=== PATIENT | female | born 1995 | race African-American/Black ===

== ENCOUNTER → 2023-10-24 | Outpatient (CLI) | payer OTHER | LOC: M LAB 11:30 | PROVIDERS: ATTEND Family Medicine | DX: Z20.1 Contact with and (suspected) exposure to tuberculosis (principal) ==

== ENCOUNTER → 2024-12-29 | Outpatient (CLI) | payer OTHER ==
[2024-12-29 08:43] LABS: GLUCOSE, FASTING 85 MG/DL (60-100)
[2024-12-29 08:47] LABS: FOLLICLE STIMULATING HORMONE 4.1 mIU/ML; THYROID STIMULATING HORMONE 3.904 uIU/ML (0.55-4.78)
[2024-12-29 08:48] LABS: LUTEINIZING HORMONE 5.6 mIU/ML; PROGESTERONE 19.02 NG/ML; PROLACTIN 19.38 NG/ML
[2024-12-29 08:49] LABS: HCG, SERUM QUALITATIVE NEGATIVE (NEGATIVE)
== END ==
LOC: M LAB 07:26
PROVIDERS: ATTEND Obstetrics & Gynecology Obstetrics
DX: E28.2 Polycystic ovarian syndrome (principal)

== ENCOUNTER → 2025-01-14 | Outpatient (CLI) | payer OTHER | LOC: M WHC 13:59 | PROVIDERS: ATTEND Obstetrics & Gynecology Obstetrics | DX: N92.6 Irregular menstruation, unspecified (principal) ==